=== PATIENT | male | born 1970 | race American Indian/Alaskan Native ===

== ENCOUNTER 2017-12-03 01:27 | Emergency (ER) | payer BC ==
[2017-12-03] MEDS ORDERED: MOTRIN PO ONE (02:54)
[2017-12-03 03:07] LABS: Basophils % (Auto) 0.4 % (0.0-1.8); Eosinophils % (Auto) 0.1 % (0.0-4.3); Hematocrit 37.2 % (35.5-45.6); Lymphocytes # (Auto) 0.9 K/mm3 (1.2-5.4); Lymphocytes % (Auto) 8.5 % (13.4-35.0); Mean Corpuscular HGB Conc 35 % (32-34); Mean Corpuscular Hemoglobin 33 pg (28-32); Mean Corpuscular Volume 95 fl (84-94); Monocytes # (Auto) 1.1 K/mm3 (0.0-0.8); Monocytes % (Auto) 10.2 % (0.0-7.3); Platelet Count 131 K/mm3 (140-440); Red Blood Count 3.92 M/mm3 (3.65-5.03)
[2017-12-03 03:19] LABS: BUN/Creatinine Ratio 13; Blood Urea Nitrogen 14 mg/dL (9-20); Calcium 9.2 mg/dL (8.4-10.2); Hemolysis Index 2
[2017-12-03 05:58] LABS: Bilirubin,Urine NEG (Negative); Blood,Urine LG (Negative); Color,Urine Yellow (Yellow)
[2017-12-03 06:06] LABS: Bacteria,Urine 1+ /HPF (Negative)
--- NOTE | 2017-12-03 08:01 | Emergency Department Report ---
ED Fever HPI - General Chief Complaint: Fever Stated Complaint: FEVER/FLU SX/CHEST PAIN Time Seen by Provider: 12/03/17 07:54 ED Review of Systems ROS: Stated complaint: FEVER/FLU SX/CHEST PAIN Other details as noted in HPI ED Past Medical Hx - Past Medical History Previous Medical History?: No - Surgical History Past Surgical History?: No - Social History Smoking Status: Former Smoker Substance Use Type: Alcohol - Medications Home Medications: Home Medications Medication Instructions Recorded Confirmed Last Taken Type Bisacodyl [Dulcolax] 10 mg PO DAILY PRN 2 Days #4 tab 12/03/17 Unknown Rx Ciprofloxacin HCl [Ciprofloxacin 500 mg PO Q12H 10 Days #20 tab 12/03/17 Unknown Rx TAB] Ibuprofen [Motrin] 600 mg PO Q8H PRN #12 tablet 12/03/17 Unknown Rx Ondansetron [Zofran Odt] 4 mg PO Q6H PRN #20 tab.rapdis 12/03/17 Unknown Rx ED Physical Exam - General Limitations: No Limitations ED Course Vital Signs 12/03/17 12/03/17 02:49 08:44 Temperature 102.9 F H Pulse Rate 106 H 68 Respiratory 20 17 Rate Blood Pressure 119/61 Blood Pressure 119/64 [Right] O2 Sat by Pulse 96 99 Oximetry ED Medical Decision Making - Lab Data Result diagrams: 12/03/17 02:57 12/03/17 02:57 - Radiology Data Radiology results: report reviewed CT scan of the abdomen and pelvis without contrast dictated by radiologist's report reviewed by myself. Please see details below Patient: REZA MCLEAN MR#: [id number] : 1970 Acct:[id number] Age/Sex: 47 / M ADM Date: 12/03/17 Loc: ED Attending Dr: Ordering Physician: CARMEN LAZO Date of Service: 12/03/17 Procedure(s): CT abdomen pelvis wo con Accession Number(s): [id number] cc: CARMEN LAZO CT ABDOMEN PELVIS WITHOUT CONTRAST: HISTORY: Hematuria, fever. COMPARISON: none. TECHNIQUE: Helical CT in 1.25mm intervals without IV contrast. Sagittal and coronal reconstructions. FINDINGS: Lung bases: Normal. Liver: Normal. Biliary system: Normal. Pancreas: Normal. Spleen: Normal. Kidneys/ureters/bladder: Normal. Adrenal glands: Normal. Aorta: Normal. Intestines: Unremarkable given no oral contrast was administered. There is moderate fecal retention throughout the colon. Appendix: Normal. Pelvic viscera: Normal. Ascites: None. Adenopathy: None. Musculoskeletal: The bony structures are intact. Mild degenerative disc disease at L3-4. A large left inguinal hernia containing fat is identified. The hernia sac measures up to 7.5 x 6.5 cm in axial dimension. No bowel loops are incorporated. IMPRESSION: No acute process is identified. Large left inguinal hernia containing fat. Mild constipation. Transcribed By: TTR Dictated By: THERESA CATHERINE JR, MD Electronically Authenticated By: THERESA CATHERINE JR, MD Signed Date/Time: 12/03/17912 DD/ 9 TD/TT: 12/03/17912 Critical care attestation.: If time is entered above; I have spent that time in minutes in the direct care of this critically ill patient, excluding procedure time. ED Disposition Clinical Impression: Acute cystitis with hematuria, Dysuria, Fever in adult, Nausea alone, Thrombocytopenia Inguinal hernia Qualifiers: Obstruction and gangrene presence: without obstruction or gangrene Laterality: unilateral Recurrence: not specified as recurrent Qualified Code(s): K40.90 - Unilateral inguinal hernia, without obstruction or gangrene, not specified as recurrent Constipation Qualifiers: Constipation type: unspecified constipation type Qualified Code(s): K59.00 - Constipation, unspecified Disposition: DC-01 TO HOME OR SELFCARE Is pt being admited?: No Does the pt Need Aspirin: No Condition: Stable Instructions: Acute Nausea and Vomiting (ED), Inguinal Hernia (ED), Dysuria (ED ), Urinary Tract Infection in Men (ED), Fever in Adults (ED), Constipation (ED) , High Fiber Diet (ED) Additional Instructions: Please follow up with primary care physician in 4 days. Take Motrin every 6 hours for fever and/or pain. Follow-up with urologist as instructed regarding in cranial hernia Take antibiotic as prescribed for urinary tract infection Increase fluid intake Take Zofran for nausea If her condition worsens, return to emergency room Please see discharge instruction on constipation and high-fiber diet. Prescriptions: Bisacodyl [Dulcolax] 10 mg PO DAILY PRN 2 Days #4 tab PRN Reason: Constipation Ciprofloxacin HCl [Ciprofloxacin TAB] 500 mg PO Q12H 10 Days #20 tab Referrals: PRIMARY CAREMD [Primary Care Provider] - 12/07/17 CAROL RODGERS MD [Staff Physician] - 12/07/17 [facility] [Provider Group] - 3-5 Days Forms: Work/School Release Form(ED)
[2017-12-03] MEDS ORDERED: TYLENOL PO ONE (08:04)
[2017-12-03] MEDS ORDERED: NACL 0.9% 1000 ML 1,000 ML IV ONE (08:04)
[2017-12-03] MEDS ORDERED: LEVAQUIN PO ONE (08:11)
[2017-12-03] MEDS ORDERED: ZOFRAN IV ONE (08:15)
--- NOTE | 2017-12-03 09:19 | Cat Scan Report ---
CT ABDOMEN PELVIS WITHOUT CONTRAST: HISTORY: Hematuria, fever. COMPARISON: none. TECHNIQUE: Helical CT in 1.25mm intervals without IV contrast. Sagittal and coronal reconstructions. FINDINGS: Lung bases: Normal. Liver: Normal. Biliary system: Normal. Pancreas: Normal. Spleen: Normal. Kidneys/ureters/bladder: Normal. Adrenal glands: Normal. Aorta: Normal. Intestines: Unremarkable given no oral contrast was administered. There is moderate fecal retention throughout the colon. Appendix: Normal. Pelvic viscera: Normal. Ascites: None. Adenopathy: None. Musculoskeletal: The bony structures are intact. Mild degenerative disc disease at L3-4. A large left inguinal hernia containing fat is identified. The hernia sac measures up to 7.5 x 6.5 cm in axial dimension. No bowel loops are incorporated. IMPRESSION: No acute process is identified. Large left inguinal hernia containing fat. Mild constipation.
[2017-12-03 10:07] VITALS: BP 118/68
== END 2017-12-03 10:05 | disposition home or self-care (01) ==
LOC: ED 01:27
DX: N30.01 Acute cystitis with hematuria (principal); D69.6 Thrombocytopenia, unspecified; K40.90 Unilateral inguinal hernia, without obstruction or gangrene, not specified as recurrent; K59.00 Constipation, unspecified; Z87.891 Personal history of nicotine dependence
CPT/HCPCS: 36415; 74176; 80048; 81001; 85025; 87076; 87086; 87186; 99284; J7030; J2405